=== PATIENT | female | born 1950 | race Caucasian/White ===

== ENCOUNTER 2025-06-16 08:15 | Outpatient (CLI) | payer MEDICARE, MEDICAID ==
[~2025-06-16 08:15] MED LIST: IODIXANOL 320 MG/ML INFUS..BTL 100ML IV ONE
[2025-06-16 09:00] LABS: APTT 24 SECONDS (22-32)
[2025-06-16 09:10] LABS: CREATININE 0.98 MG/DL (0.40-0.90); PRO BRAIN NATRIURETIC PEPTIDE 285 PG/ML (0-125); TOTAL CARBON DIOXIDE 30.7 MMOL/L (24-32); eGFR 55 ML/MIN
[2025-06-16 09:40] LABS: MEAN PLATELET VOLUME 7.8 FL (7.4-10.4); RED CELL DISTRIBUTION WIDTH 13.1 % (11.5-14.5)
--- NOTE | 2025-06-16 09:45 | RADIOLOGY REPORT ---
DI CHEST,TWO VIEWS CLINICAL HISTORY: CAROTID STENOSIS,SOB,AV STENOSIS COMPARISON: None TECHNIQUE: Frontal and lateral view of the chest was obtained FINDINGS: Lines and Tubes: None Lungs: No focal consolidation. Pleura: No effusion. No pneumothorax. Cardiomediastinal contours: Unremarkable Bones: No acute osseous abnormality. IMPRESSION: No acute cardiopulmonary disease.
[2025-06-16 10:06] LABS: INR 0.9 INR
--- NOTE | 2025-06-16 13:05 | VASCULAR REPORT ---
[facility] Vascular Department [facility] [address] [place] [address] [email or web address] VASCUI CONMESION Name : VANDANA CRAIG Date : 06/16/2025 FESTINO Birthdate : 1950 Sex :F Age : 75Y Senior Erp Consultant : Romana De La Fuente RDMS/RVT Referring Dr. : ANNETTE NGUYEN Preliminary Report The above named patient was referred for a NON-INVASIVE CEREBROVASCULAR EVALUATION. The evaluation includes grayscale imaging, color flow Doppler and spectral analysis of the bilateral carotid and vertebral arteries. Patient OUT-PATIENT L ttihnBilateral Indications Pre op Doppler Spectral Velocity Analysis Right Left pCCA 93/23 cm/s pCCA 113/31 cm/s dCCA 63/17 cm/s dCCA 82/16 cm/s ECA 165/ cm/s ECA 198/ cm/s pICA 97/33 cm/s pICA 172/51 cm/s Razia 185/64 cm/s Razia 121/33 cm/s dICA dICA 149/38 cm/s Vert. 136/49 cm/s 133/28 cm/s Vert. 82/20 cm/s Subcl. 136/ cm/s Subcl. 119/ cm/s ICA/CCA 2.90 ICA/CCA 2.10 Impression: 50-69% stenosis bilateral Internal Carotid Arteries. <50% stenosis visualized in the Common Carotid Arteries, and External Carotid Arteries bilaterally. Antegrade flow visualized in Vertebral Arteries bilaterally. Multiphasic Subclavian Arteries bilaterally.
--- NOTE | 2025-06-17 10:18 | RADIOLOGY REPORT ---
CT CTA TAVR INDICATION: Aortic stenosis TECHNIQUE: Gated CT angiography of the heart was performed along with CT angiography of the lower neck, chest, abdomen, and pelvis. MIP, MPR, and 3-D images were obtained. Measurements were performed on the [employer] workstation. All CT scans at this facility use dose modulation, iterative reconstruction, and/or weight based dosing when appropriate to reduce radiation dose to as low as reasonably achievable. COMPARISON: None available at the time of dictation. FINDINGS: ANNULAR PLANE DISTANCE: 25.2 x 19.4 mm AREA: 3.82 cm2 AVERAGE DIAMETER: 22.3 mm PERIMETER: 70.3 mm LEFT CORONARY ARTERY HEIGHT ABOVE ANNULAR PLANE: 12.5 mm RIGHT CORONARY ARTERY HEIGHT ABOVE ANNULAR PLANE: 7.45 mm LEFT CORONARY SINUS DIAMETER: 25.5 mm RIGHT CORONARY SINUS DIAMETER: 25 mm NONCORONARY CORONARY SINUS DIAMETER: 26.5 mm SINOTUBULAR JUNCTION DIAMETER: 23.9 mm RIGHT COMMON ILIAC ARTERY MINIMAL DIMENSIONS: 6.08 mm RIGHT EXTERNAL ILIAC ARTERY MINIMAL DIMENSIONS: 5.2 mm RIGHT COMMON FEMORAL ARTERY MINIMAL DIMENSIONS: 4.9 mm LEFT COMMON ILIAC ARTERY MINIMAL DIMENSIONS: 6.5 mm LEFT EXTERNAL ILIAC ARTERY MINIMAL DIMENSIONS: 5.9 mm LEFT COMMON FEMORAL ARTERY MINIMAL DIMENSIONS: 4.1 mm [LOWER NECK]: Unremarkable [LYMPH NODES/MEDIASTINUM]: No abnormal lymph nodes by CT size criteria [CARDIOVASCULAR]: Normal cardiac size. No pericardial effusion. No aneurysmal dilatation of the great vessels. No significant coronary artery calcifications. [LUNG PARENCHYMA/PLEURAL SPACE]: No consolidation. [id number] centrilobular emphysema. [CHEST WALL]: Unremarkable. [LIVER]: Benign cysts in the liver [SPLEEN]: Unremarkable. [PANCREAS]: Unremarkable. [GALLBLADDER AND BILIARY TREE]: No cholelithiasis. No biliary dilatation. [ADRENAL GLANDS]: Unremarkable [KIDNEYS]: No hydronephrosis. No nephroureterolithiasis. No suspicious focal lesion. [BLADDER]: Unremarkable for the degree distention. [PELVIC ORGANS]: Unremarkable. [BOWEL/MESENTERY]: Small to medium sliding hiatal hernia. No CT evidence of bowel obstruction. Moderate to severe sigmoid diverticulosis at least moderate descending colonic diverticulosis. There is no free air. [ASCITES]: Absent [LYMPHADENOPATHY]: No pathologically enlarged lymph nodes by CT size criteria [VASCULATURE]: Vascular calcifications. [ABDOMINAL WALL]: Unremarkable. [MUSCULOSKELETAL]: No acute fracture or aggressive focal osseous lesion. Multifocal degenerative change of the visualized spine. Vertebral body hemangioma of L2. IMPRESSION: 1. Calculations for TAVR evaluation as above.
== END 2025-06-16 23:59 | disposition home or self-care (01) ==
LOC: RAD 08:15
PROVIDERS: ATTEND Internal Medicine Cardiovascular Disease
DX: Z01.818 Encounter for other preprocedural examination (principal); I35.0 Nonrheumatic aortic (valve) stenosis; R06.02 Shortness of breath; I65.29 Occlusion and stenosis of unspecified carotid artery; J43.2 Centrilobular emphysema; K76.89 Other specified diseases of liver; K44.9 Diaphragmatic hernia without obstruction or gangrene; K57.30 Diverticulosis of large intestine without perforation or abscess without bleeding; M47.814 Spondylosis without myelopathy or radiculopathy, thoracic region; I65.23 Occlusion and stenosis of bilateral carotid arteries
CPT/HCPCS: 36415; 71046; 71275; 74174; 75572; 80053; 83880; 85025; 85610; 85730; 93880; Q9967